=== PATIENT | male | born 1975 | race Caucasian/White ===

== ENCOUNTER 2019-05-11 01:32 | Emergency (ER) | payer SELFPAY ==
[~2019-05-11 01:32] MED LIST: Sodium Chloride 0.9% 1,000 ML IV ONE
[2019-05-11] MEDS ORDERED: Sodium Chloride 0.9% 1,000 ML IV SCH (02:00)
[2019-05-11 02:16] LABS: BLOOD UREA NITROGEN,BUN 9 mg/dL (7.0-18.0); CARBON DIOXIDE,CO2 26.7 mmol/L (21.0-32.0); CHLORIDE,CL 101 mmol/L (98-107); GLUCOSE RANDOM 110 mg/dL (74-106); POTASSIUM,K 3.4 mmol/L (3.5-5.1); SODIUM,NA 139 mmol/L (136-148)
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
[2019-05-11] MEDS ORDERED: ceFAZolin 1 GM in Premix Bag 1 BAG IV ONE (03:19)
[2019-05-11] MEDS ORDERED: Diphtheria,Pertussis(Acell),Tetanus Vaccine 0.5 ML Syringe IM ONE (03:20)
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
[2019-05-11] MEDS ORDERED: LORazepam 2 MG/ML SDV IVPUSH STA (04:21)
--- NOTE | 2019-05-11 05:53 | CT ---
INDICATION: Follow-up subdural hematoma. COMPARISON: From earlier today at 0146 hours TECHNIQUE: CT examination of the head was performed at 0523 hours with 3 mm thick axial sections without intravenous contrast. Images were obtained from the vertex of the skull through the skull base, and I examined the images with the brain and bone windows. Please note that all CT scans at this facility use dose modulation, iterative reconstruction, and/or weight-based dosing when appropriate to reduce radiation dose to as low as reasonably achievable. FINDINGS: There has been no change in the mild left tentorial subdural hematoma which extends to the posterior falx. The hematoma produces no mass effect upon the adjacent brain. The reported tiny left frontotemporal subdural hematoma is no longer evident. The rest of the brain is normal in appearance with no sign of any intraparenchymal hemorrhage, new extra-axial hemorrhage, mass lesion, or mass effect. The ventricles and sulci are normal in appearance for the patient`s age. The visualized portions of the orbits are normal in appearance. Again seen are moderate air-fluid levels in the sphenoid sinuses bilaterally consistent with acute sinusitis. The rest of the visualized paranasal sinuses and mastoids are clear. Again seen is a mild left posterior parietal subperiosteal hematoma with associated mild scalp soft tissue swelling. The osseous structures are normal in their appearance with no sign of abnormality in the skull base or calvarium. IMPRESSION: Stable mild left tentorial subdural hematoma extending to the posterior falx with no mass effect upon the adjacent brain. The previously reported left frontotemporal convexity tiny subdural hematoma can no longer be identified. No sign of any new intra-axial or extra-axial hemorrhage. Please note that all CT scans at this facility use dose modulation, iterative reconstruction, and/or weight-based dosing when appropriate to reduce radiation dose to as low as reasonably achievable. Dictated by Joaquin Cruz MD @ May 11 2019 5:44AM Signed by Dr. Joaquin Cruz @ May 11 2019 5:52AM
[2019-05-11] MEDS ORDERED: LORazepam 2 MG/ML SDV IVPUSH ONE (06:21)
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
== END 2019-05-11 06:45 ==
LOC: MW.ED 01:32
DX: S06.5X9A Traumatic subdural hemorrhage with loss of consciousness of unspecified duration, initial encounter (principal); S09.21XA Traumatic rupture of right ear drum, initial encounter; F10.10 Alcohol abuse, uncomplicated; Y90.8 Blood alcohol level of 240 mg/100 ml or more; F17.210 Nicotine dependence, cigarettes, uncomplicated; Z23 Encounter for immunization; W22.8XXA Striking against or struck by other objects, initial encounter; W22.01XA Walked into wall, initial encounter; Y92.231 Patient bathroom in hospital as the place of occurrence of the external cause
CPT/HCPCS: 36415; 70450; 71045; 72125; 80053; 80305; 80320; 85025; 85610; 90471; 90715; 93005; 96361; 96365; 96375; 96376; 99285; J0690; J2060; J7030; G0480

== ENCOUNTER 2025-01-24 09:25 | Day surgery (SDC) | payer BC ==
[~2025-01-24 09:25] MED LIST changes: +Albuterol 0.083% 2.5 MG/3 ML Neb Soln NEB PRN; +Naloxone 0.4 MG/ML SDV IVPUSH PRN; +Ondansetron 4 MG/2 ML SDV IVPUSH PRN; -Sodium Chloride 0.9% 1,000 ML IV ONE; +fentaNYL 50 MCG/ML SDV IVPUSH PRN
[2025-01-24] MEDS: Lactated Ringers 1,000 ML IV SCH (10:20)
[2025-01-24] MEDS ORDERED: fentaNYL 100 MCG/2 ML SDV ONE (10:30)
[2025-01-24] MEDS ORDERED: Propofol 200 MG/20 ML SDV ONE (10:30)
[2025-01-24] MEDS ORDERED: dexmedeTOMIDine HCl 200 MCG/2 ML SDV ONE (10:30)
[2025-01-24] MEDS ORDERED: Ketorolac 30 MG/ML SDV ONE (11:55)
[2025-01-24] MEDS ORDERED: Dexamethasone 4 MG/ML 5 ML MDV ONE (12:00)
[2025-01-24] MEDS ORDERED: Ondansetron 4 MG/2 ML SDV ONE (12:00)
[2025-01-24] MEDS ORDERED: ePHEDrine 50 MG/ML SDV ONE (12:06)
== END 2025-01-24 13:24 | disposition home or self-care (01) ==
LOC: MW.SDS 09:25
PROVIDERS: ATTEND Surgery
DX: L72.0 Epidermal cyst (principal); I48.91 Unspecified atrial fibrillation; I10 Essential (primary) hypertension; E66.9 Obesity, unspecified; F17.210 Nicotine dependence, cigarettes, uncomplicated; Z79.01 Long term (current) use of anticoagulants; Z68.33 Body mass index [BMI] 33.0-33.9, adult; Z79.899 Other long term (current) drug therapy
CPT/HCPCS: 11404; 12032; J0665; J1100; J1885; J2405; J2704; J3010; J7120; 00300; J2003; J3490

== ENCOUNTER 2025-02-11 09:42 | Day surgery (SDC) | payer BC ==
[2025-02-11] MEDS ORDERED: Propofol 200 MG/20 ML SDV ONE ×2 (09:58→10:04)
[2025-02-11] MEDS ORDERED: Magnesium Sulfate (4.06 MEQ/ML) 5 GM/10 ML SDV ONE (10:03)
[2025-02-11] MEDS: Lactated Ringers 1,000 ML IV SCH (10:07)
[2025-02-11] MEDS ORDERED: Ketamine HCL/NACL, ISO-OSM 50 MG/5 ML Syringe ONE (10:15)
[2025-02-11] MEDS ORDERED: Ondansetron 4 MG/2 ML SDV ONE (10:28)
[2025-02-11] MEDS ORDERED: Lactated Ringers 1,000 ML IV SCH (11:00)
== END 2025-02-11 11:27 | disposition home or self-care (01) ==
LOC: MW.SDS 09:42
PROVIDERS: ATTEND Surgery
DX: Z12.11 Encounter for screening for malignant neoplasm of colon (principal); D12.8 Benign neoplasm of rectum; I10 Essential (primary) hypertension; E78.00 Pure hypercholesterolemia, unspecified; I48.91 Unspecified atrial fibrillation; F17.210 Nicotine dependence, cigarettes, uncomplicated; Z79.01 Long term (current) use of anticoagulants; Z79.899 Other long term (current) drug therapy
CPT/HCPCS: 45380; J2003; J2405; J2704; J3475; J7120; 00811; J3490